=== PATIENT | male | born 1960 | race Hispanic/Latino ===

== ENCOUNTER 2020-08-13 20:50 | Emergency (ER) | payer OTHER ==
[~2020-08-13] VITALS: Ht 167.6 cm; Wt 111.1 kg
[2020-08-13] MEDS ORDERED: HYDROCODONE/ACETAMINOPHEN 5/325 MG TAB PO ONE (21:30)
[2020-08-13] MEDS ORDERED: KETOROLAC 30MG VIAL (30MG/ML) IM ONE (21:30)
[2020-08-13] MEDS ORDERED: IBUP-2070 PO (21:34)
[2020-08-13] MEDS ORDERED: PENI500T2 PO (21:34)
[2020-08-13] MEDS ORDERED: TYL2 PO (21:34)
== END 2020-08-13 22:45 | disposition home or self-care (01) ==
LOC: EDH 22:08
DX: K02.9 Dental caries, unspecified (principal); K08.89 Other specified disorders of teeth and supporting structures; E11.9 Type 2 diabetes mellitus without complications
CPT/HCPCS: 96372; 99283; J1885

== ENCOUNTER 2021-10-03 00:46 | Inpatient (IN) | payer OTHER ==
[~2021-10-03] VITALS: Ht 175.3 cm; Wt 116.4 kg
[~2021-10-03 00:46] MED LIST: IBUP-2070 PO; PENI500T2 PO; TYL2 PO
[2021-10-03 01:20] LABS: BASOPHILS % (AUTO) 0.4 % (0.0-5.0); EOSINOPHILS % (AUTO) 46.5 % (0.0-8.0); LYMPHOCYTES % (AUTO) 10.6 % (21.0-51.0); MEAN CORPUSCULAR HEMOGLOBIN 30.3 pg (27.0-33.0); MEAN CORPUSCULAR HGB CONC 34.3 g/dL (32.0-36.0); MEAN CORPUSCULAR VOLUME 88.3 fL (79-99); MONOCYTES % (AUTO) 4.3 % (3.0-13.0); NEUTROPHILS % (AUTO) 37.4 % (40.0-77.0); PLATELET COUNT (AUTO) 185 K/uL (130-400); RED BLOOD CELL COUNT(AUTO) 5.21 MIL/uL (4.50-6.20); RED CELL DISTRIBUTION WIDTH 12.7 % (11.0-15.5)
[2021-10-03 01:27] LABS: CREATININE 1.1 mg/dL (0.5-1.5); POTASSIUM 3.9 mmol/L (3.5-5.1)
[2021-10-03] MEDS ORDERED: 0.9%NACL 1000ML 1,000 ML IV ONE (01:30)
[2021-10-03] MEDS ORDERED: ONDANSETRON 4MG INJ IVP ONE ×2 (01:30→04:00)
[2021-10-03] MEDS ORDERED: MORPHINE 2 MG SYG IVP ONE (01:30)
[2021-10-03 01:32] LABS: ALBUMIN 3.6 g/dL (3.5-5.0); TOTAL PROTEIN, SERUM 7.3 g/dL (6.0-8.3)
[2021-10-03 01:32] LABS: APPEARANCE,URINE CLEAR (CLEAR); BILIRUBIN,URINE SMALL (NEGATIVE); COLOR,URINE YELLOW (YELLOW); GLUCOSE, URINE (UA) NEGATIVE (NEGATIVE); KETONES,URINE >=80 mg/dL (NEGATIVE); LEUKOCYTE ESTERASE ,URINE NEGATIVE (NEGATIVE); NITRATE,URINE NEGATIVE (NEGATIVE); OCCULT BLOOD,URINE NEGATIVE (NEGATIVE); PROTEIN,URINE 30 mg/dL (NEGATIVE); UROBILINOGEN,URINE 0.2 mg/dL (0.2-1.0)
[2021-10-03 01:42] LABS: BACTERIA,URINE None Seen /HPF (None Seen); MUCUS,URINE Rare LPF (None Seen); RBC,URINE 0-1 /HPF (0-1); SQUAMOUS EPITHELIAL CELL,UR Few /HPF (0-2); WBC,URINE None Seen /HPF (0-1)
[2021-10-03 02:31] LABS: BAND NEUTROPHILS % (MANUAL) 1 % (0-2); EOSINOPHILS % (MANUAL) 52 % (1-6); LYMPHOCYTES % (MANUAL) 8 % (22-44); MAN.DIFF COMMENT-IMPRESSION MANUAL DIFFERENTIAL; MONOCYTES % (MANUAL) 4 % (2-9); REACTIVE LYMPHOCYTES 2 % (0-0); SEGMENTED NEUTROPHILS % 33 % (40-70)
[2021-10-03 02:32] LABS: PLATELET MORPHOLOGY COMMENT ADEQUATE
[2021-10-03] MEDS ORDERED: ONDANSETRON 4MG INJ IV PRN (04:00)
[2021-10-03] MEDS: 0.9%NACL 1000ML 1,000 ML IV SCH (04:00)
[2021-10-03] MEDS ORDERED: ACETAMINOPHEN 325 MG TAB PO PRN (04:00)
[2021-10-03] MEDS: ZOLPIDEM TARTRATE 5 MG TAB PO PRN ×2 (05:32→22:59)
[2021-10-03] MEDS: MORPHINE 2 MG SYG IV PRN (05:41)
[2021-10-03 07:39] VITALS: BP 153/85
[2021-10-03] MEDS ORDERED: CARV12.511 PO (07:54)
[2021-10-03] MEDS ORDERED: AMLO-258 PO (07:54)
[2021-10-03] MEDS ORDERED: AEC81 PO (07:54)
[2021-10-03] MEDS ORDERED: ATOR10TA69 PO (07:54)
[2021-10-03] MEDS ORDERED: OMEP-420 PO (07:54)
[2021-10-03] MEDS ORDERED: TIRZ2.5P SQ (07:54)
[2021-10-03] MEDS ORDERED: MELO5CAP3 PO (07:54)
[2021-10-03] MEDS ORDERED: LOSA50TA64 PO (07:54)
[2021-10-03] MEDS ORDERED: HYDR-3421 PO (07:54)
[2021-10-03] MEDS ORDERED: REPA2TAB8 PO (07:54)
[2021-10-03] MEDS ORDERED: METF-444 PO (07:54)
[2021-10-03] MEDS: FAMOTIDINE 20MG VIAL IV SCH ×2 (07:57→21:20)
[2021-10-03] MEDS: METRONIDAZOLE 500 MG TABLET PO SCH ×2 (07:57→21:19)
[2021-10-03 08:59] LABS: HEMOGLOBIN A1C 6.9 % (4.0-6.0)
[2021-10-03 09:03] VITALS: BP 154/93
[2021-10-03 12:00] VITALS: BP 124/86
[2021-10-03 15:33] VITALS: BP 116/70
[2021-10-03 19:56] VITALS: BP 157/106
[2021-10-03] MEDS: HYDROXYZINE 25 MG TABLET PO SCH (21:19)
[2021-10-03] MEDS: CARVEDILOL 12.5 MG TABLET PO SCH (21:20)
[2021-10-04] VITALS (7 sets, daily range): BP systolic 107–134; BP diastolic 65–83
[2021-10-04] MEDS: 0.9%NACL 1000ML 1,000 ML IV SCH ×2 (05:57)
[2021-10-04 06:19] LABS: BASOPHILS % (AUTO) 0.2 % (0.0-5.0); EOSINOPHILS % (AUTO) 32.7 % (0.0-8.0); HEMATOCRIT 38.7 % (42-54); LYMPHOCYTES % (AUTO) 17.8 % (21.0-51.0); MEAN CORPUSCULAR HEMOGLOBIN 29.8 pg (27.0-33.0); MEAN CORPUSCULAR HGB CONC 33.9 g/dL (32.0-36.0); MEAN CORPUSCULAR VOLUME 88.2 fL (79-99); MONOCYTES % (AUTO) 5.7 % (3.0-13.0); NEUTROPHILS % (AUTO) 42.6 % (40.0-77.0); PLATELET COUNT (AUTO) 148 K/uL (130-400); RED BLOOD CELL COUNT(AUTO) 4.39 MIL/uL (4.50-6.20); RED CELL DISTRIBUTION WIDTH 12.7 % (11.0-15.5); WHITE BLOOD COUNT (AUTO) 18.9 K/uL (4.8-10.8)
[2021-10-04 06:37] LABS: ALBUMIN 2.8 g/dL (3.5-5.0); CREATININE 0.8 mg/dL (0.5-1.5); POTASSIUM 3.4 mmol/L (3.5-5.1); TOTAL PROTEIN, SERUM 5.7 g/dL (6.0-8.3)
[2021-10-04] MEDS: METRONIDAZOLE 500 MG TABLET PO SCH ×2 (08:14→21:35)
[2021-10-04] MEDS: AMLODIPINE 5 MG TAB PO SCH (08:14)
[2021-10-04] MEDS: HYDROXYZINE 25 MG TABLET PO SCH ×2 (08:15→21:35)
[2021-10-04] MEDS: CARVEDILOL 12.5 MG TABLET PO SCH ×2 (08:15→21:35)
[2021-10-04] MEDS: FAMOTIDINE 20MG VIAL IV SCH ×2 (08:16→21:34)
[2021-10-04] MEDS ORDERED: POTASSIUM CHLORIDE IV SCH (15:00)
[2021-10-04] MEDS ORDERED: NACL IV SCH (15:00)
[2021-10-04] MEDS ORDERED: DEXTROSE IV SCH (15:00)
[2021-10-04] MEDS: POTASSIUM CHLORIDE IV SCH (17:01)
[2021-10-04] MEDS: NACL IV SCH (17:01)
[2021-10-04] MEDS: DEXTROSE IV SCH (17:01)
[2021-10-04] MEDS: MORPHINE 2 MG SYG IV PRN (17:57)
[2021-10-05] MEDS: DEXTROSE IV SCH (02:52)
[2021-10-05] MEDS: NACL IV SCH (02:52)
[2021-10-05] MEDS: POTASSIUM CHLORIDE IV SCH (02:52)
[2021-10-05 03:57] VITALS: BP 109/73
[2021-10-05 05:51] LABS: BASOPHILS % (AUTO) 0.4 % (0.0-5.0); EOSINOPHILS % (AUTO) 40.8 % (0.0-8.0); HEMATOCRIT 39.2 % (42-54); LYMPHOCYTES % (AUTO) 22.9 % (21.0-51.0); MEAN CORPUSCULAR HGB CONC 33.4 g/dL (32.0-36.0); MEAN CORPUSCULAR VOLUME 89.7 fL (79-99); MONOCYTES % (AUTO) 5.4 % (3.0-13.0); NEUTROPHILS % (AUTO) 29.8 % (40.0-77.0); PLATELET COUNT (AUTO) 142 K/uL (130-400); RED BLOOD CELL COUNT(AUTO) 4.37 MIL/uL (4.50-6.20); RED CELL DISTRIBUTION WIDTH 12.9 % (11.0-15.5); WHITE BLOOD COUNT (AUTO) 13.4 K/uL (4.8-10.8)
[2021-10-05 06:25] LABS: ALBUMIN 2.7 g/dL (3.5-5.0); CREATININE 0.8 mg/dL (0.5-1.5); POTASSIUM 3.6 mmol/L (3.5-5.1); TOTAL PROTEIN, SERUM 5.6 g/dL (6.0-8.3)
[2021-10-05 08:00] VITALS: BP 128/82
[2021-10-05] MEDS: METRONIDAZOLE 500 MG TABLET PO SCH (09:58)
[2021-10-05] MEDS: AMLODIPINE 5 MG TAB PO SCH (09:58)
[2021-10-05] MEDS: HYDROXYZINE 25 MG TABLET PO SCH (09:58)
[2021-10-05] MEDS: CARVEDILOL 12.5 MG TABLET PO SCH (09:58)
[2021-10-05] MEDS: FAMOTIDINE 20MG VIAL IV SCH (09:59)
[2021-10-05 12:00] VITALS: BP 118/76
[2021-10-05] MEDS ORDERED: LEVO-70 PO (14:16)
[2021-10-05] MEDS ORDERED: METR-172 PO (14:16)
== END 2021-10-05 16:45 | disposition home or self-care (01) | DRG 392 ==
LOC: EDH 00:46 → EDHIP 03:50 → 3BH 08:54
PROVIDERS: ADMIT Internal Medicine; ATTEND Internal Medicine
DX: K52.9 Noninfective gastroenteritis and colitis, unspecified (principal); E11.9 Type 2 diabetes mellitus without complications; E66.01 Morbid (severe) obesity due to excess calories; I10 Essential (primary) hypertension; E78.00 Pure hypercholesterolemia, unspecified; D72.10 Eosinophilia, unspecified; E86.0 Dehydration; Z83.3 Family history of diabetes mellitus; Z79.899 Other long term (current) drug therapy; Z79.84 Long term (current) use of oral hypoglycemic drugs; Z79.82 Long term (current) use of aspirin; Z68.37 Body mass index [BMI] 37.0-37.9, adult
CPT/HCPCS: 36415; 74176; 76705; 80053; 81001; 83036; 83690; 84484; 85025; 85651; 86140; 93005; G0378; J2405; J3480; J3490; J7030; J7042